=== PATIENT | female | born 1990 | race African-American/Black ===

== ENCOUNTER 2016-09-05 22:23 | Emergency (ER) | payer OTHER ==
[~2016-09-05] VITALS: Ht 165.1 cm; Wt 117.9 kg
[~2016-09-05 22:23] MED LIST: HYDR-2666 PO; METO10TA81 PO; METR500T4 PO; PNV1TABL25 PO
[2016-09-05 22:52] VITALS: BP 128/75
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
[2016-09-05] MEDS ORDERED: IBUPROFEN 600 MG TABLET. PO ONE (23:30)
[2016-09-05] MEDS ORDERED: HYDROCODONE/APAP 5/325MG TABLET. PO ONE (23:30)
--- NOTE | 2016-09-06 00:39 | RAD ---
INDICATION: Trauma COMPARISON: None TECHNIQUE: Axial CT images of the face with coronal and sagittal reformats processed. Axial CT images of head. One or more of the following individualized dose reduction techniques were utilized for this examination: 1. Automated exposure control; 2. Adjustment of the mA and/or kV according to patient size; 3. Use of iterative reconstruction technique. FINDINGS: Head: No midline shift. Basilar cistern patent. No gross hemorrhage or mass. Ventricles and sulci within normal limits in caliber for patients age. No gross skull fracture. Cystic attenuation in posterior fossa, could be prominent cisterna magna. Facial: No definite acute fracture or dislocation. No retro-orbital hematoma IMPRESSION: No gross intracranial hemorrhage or mass. No definite acute fracture or dislocation of the face Electronically signed by: Jude Prabhakar (Sep 06, 2016 00:38:57)
[2016-09-06] MEDS ORDERED: HYDR-971 PO (00:49)
== END 2016-09-06 00:55 | disposition home or self-care (01) ==
LOC: EEVIPCON 22:23 → ER 09-06 00:13
DX: S00.83XA Contusion of other part of head, initial encounter (principal); S00.03XA Contusion of scalp, initial encounter; S00.511A Abrasion of lip, initial encounter; F12.10 Cannabis abuse, uncomplicated; K21.9 Gastro-esophageal reflux disease without esophagitis; Y04.0XXA Assault by unarmed brawl or fight, initial encounter; Y93.89 Activity, other specified; Y92.038 Other place in apartment as the place of occurrence of the external cause; Y99.8 Other external cause status
CPT/HCPCS: 70450; 70486; 99284-25

== ENCOUNTER 2018-03-09 18:26 | Emergency (ER) | payer OTHER ==
[~2018-03-09] VITALS: Ht 167.6 cm; Wt 121.1 kg
[~2018-03-09 18:26] MED LIST changes: -HYDR-2666 PO; +HYDR-2758 PO; +HYDR-971 PO; -METR500T4 PO; +METR500T8 PO
[2018-03-09 19:14] LABS: BILIRUBIN,URINE NEGATIVE (NEG); CLARITY,URINE CLEAR; COLOR,URINE YELLOW; NITRITE,URINE NEGATIVE (NEG); PH,URINE 5.5; PROTEIN,URINE NEGATIVE (NEG-TRACE); UROBILINOGEN,URINE 0.2 mg/dL (0.2 mg/dL)
--- NOTE | 2018-03-09 19:22 | PHYS DOC ---
Past Medical History Past Medical History: GERD, Other Additional Past Medical Histor: htn in Past Surgical History: Additional Past Surgical Histo: C-sec x3. Alcohol Use: None Drug Use: None, Marijuana Adult General Chief Complaint Chief Complaint: ABDOMINAL PAIN HPI HPI Patient is a 27 year old female who presents with multiple complaints. Patient is complaining of vaginal bleeding/spotting intermittently for months. She states she has a Mirena. She states she used to have regular periods but for the last couple months she has noted spotting every 15 days. Patient is also complaining of generalized pelvic pain that has been going on for months. She is concerned the Mirena is the source of her pain. She is also complaining of a headache for couple days. Describes the headache as throbbing right rates it as mild and frontal. Denies any photophobia,nausea, vomiting. She is also complaining of a rash on her upper chest and shoulders that she noted yesterday , denies any new contacts. Review of Systems Review of Systems Constitutional: Denies fever or chills [] Eyes: Denies change in visual acuity, redness, or eye pain [] HENT: Denies nasal congestion or sore throat [] Respiratory: Denies cough or shortness of breath [] Cardiovascular: No additional information not addressed in HPI [] GI: Reports abdominal pain, vaginal bleeding/spotting, denies nausea, vomiting, bloody stools or diarrhea [] : Denies dysuria or hematuria [] Musculoskeletal: Denies back pain or joint pain [] Integument: Reports rash Neurologic: Reports headache, denies focal weakness or sensory changes [] All other systems were reviewed and found to be within normal limits, except as documented in this note. Current Medications Current Medications Current Medications Medications (Trade) Dose Ordered Sig/Artem Start Time Stop Time Status Last Admin Dose Admin Diphenhydramine HCl (Benadryl) 25 mg 1X ONCE 03/09/18 19:45 03/09/18 19:46 DC 03/09/18 19:32 25 MG Famotidine (Pepcid) 20 mg 1X ONCE 03/09/18 19:45 03/09/18 19:46 DC 03/09/18 19:32 20 MG Prednisone (Prednisone) 60 mg 1X ONCE 03/09/18 19:45 03/09/18 19:46 DC 03/09/18 19:32 60 MG Allergies Allergies Allergies Coded Allergies Type Severity Reaction Last Updated Verified No Known Drug Allergies 09/14/15 No Physical Exam Physical Exam Constitutional: Well developed, well nourished, no acute distress, non-toxic appearance. [] HENT: Normocephalic, atraumatic, bilateral external ears normal, oropharynx moist, no oral exudates, nose normal. [] Eyes: PERRLA, EOMI, conjunctiva normal, no discharge. [] Neck: Normal range of motion, no tenderness, supple, no stridor. [] Cardiovascular:Heart rate regular rhythm, no murmur [] Lungs & Thorax: Bilateral breath sounds clear to auscultation [] Abdomen: Bowel sounds normal, soft, no tenderness, no masses, no pulsatile masses. [] Pelvic exam External pelvic appears normal, cervix is not well visualized due to body habitus, no CMT, no adnexal tenderness, trace amount of white discharge in the vaginal vault Skin: Warm, dry, no erythema, small amount of nonerythematous rash on bilateral shoulders and upper chest. Back: No tenderness, no CVA tenderness. [] Extremities: No tenderness, no cyanosis, no clubbing, ROM intact, no edema. [] Neurologic: Alert and oriented X 3, normal motor function, normal sensory function, no focal deficits noted. Cranial nerves II through XII intact Psychologic: Affect normal, judgement normal, mood normal. [] Current Patient Data Vital Signs Vital Signs Date Time Temp Pulse Resp B/P (MAP) Pulse Ox O2 Delivery O2 Flow Rate FiO2 03/09/18 21:28 63 18 107/60 (76) 99 03/09/18 18:50 98.6 Room Air 98.6 Lab Values Laboratory Tests Test 03/09/18 18:53 03/09/18 19:00 03/09/18 19:23 Urine Collection Type Unknown Urine Color Yellow Urine Clarity Clear Urine pH 5.5 Urine Specific [place] 1.020 Urine Protein Negative mg/dL (NEG-TRACE) Urine Glucose (UA) Negative mg/dL (NEG) Urine Ketones (Stick) Negative mg/dL (NEG) Urine Blood Negative (NEG) Urine Nitrite Negative (NEG) Urine Bilirubin Negative (NEG) Urine Urobilinogen Dipstick 0.2 mg/dL (0.2 mg/dL) Urine Leukocyte Esterase Trace (NEG) Urine RBC 0 /HPF (0-2) Urine WBC 1-4 /HPF (0-4) Urine Squamous Epithelial Cells Few /LPF Urine Bacteria 0 /HPF (0-FEW) Urine Mucus Mod /LPF Urine Opiates Screen Neg (NEG) Urine Methadone Screen Neg (NEG) Urine Barbiturates Neg (NEG) Urine Phencyclidine Screen Neg (NEG) Urine Amphetamine/Methamphetamine Neg (NEG) Urine Benzodiazepines Screen Neg (NEG) Urine Cocaine Screen Neg (NEG) Urine Cannabinoids Screen Pos (NEG) Urine Ethyl Alcohol Neg (NEG) POC Urine HCG, Qualitative Hcg negative (Negative) White Blood Count 7.7 x10^3/uL (4.0-11.0) Red Blood Count 4.35 x10^6/uL (3.50-5.40) Hemoglobin 13.8 g/dL (12.0-15.5) Hematocrit 39.4 % (36.0-47.0) Mean Corpuscular Volume 91 fL (79-100) Mean Corpuscular Hemoglobin 32 pg (25-35) Mean Corpuscular Hemoglobin Concent 35 g/dL (31-37) Red Cell Distribution Width 12.8 % (11.5-14.5) Platelet Count 321 x10^3/uL (140-400) Neutrophils (%) (Auto) 63 % (31-73) Lymphocytes (%) (Auto) 27 % (24-48) Monocytes (%) (Auto) 8 % (0-9) Eosinophils (%) (Auto) 2 % (0-3) Basophils (%) (Auto) 1 % (0-3) Neutrophils # (Auto) 4.8 x10^3uL (1.8-7.7) Lymphocytes # (Auto) 2.1 x10^3/uL (1.0-4.8) Monocytes # (Auto) 0.6 x10^3/uL (0.0-1.1) Eosinophils # (Auto) 0.1 x10^3/uL (0.0-0.7) Basophils # (Auto) 0.1 x10^3/uL (0.0-0.2) Sodium Level 139 mmol/L (136-145) Potassium Level 3.6 mmol/L (3.5-5.1) Chloride Level 104 mmol/L (98-107) Carbon Dioxide Level 28 mmol/L (21-32) Anion Gap 7 (6-14) Blood Urea Nitrogen 9 mg/dL (7-20) Creatinine 0.7 mg/dL (0.6-1.0) Estimated GFR (Cockcroft-Gault) 123.4 BUN/Creatinine Ratio 13 (6-20) Glucose Level 87 mg/dL (70-99) Calcium Level 8.7 mg/dL (8.5-10.1) Total Bilirubin 0.9 mg/dL (0.2-1.0) Aspartate Amino Transferase (AST) 16 U/L (15-37) Alanine Aminotransferase (ALT) 24 U/L (14-59) Alkaline Phosphatase 57 U/L (46-116) Total Protein 7.5 g/dL (6.4-8.2) Albumin 3.5 g/dL (3.4-5.0) Albumin/Globulin Ratio 0.9 (1.0-1.7) L Lipase 134 U/L (73-393) Ethyl Alcohol Level < 10 mg/dL (0-10) Laboratory Tests 03/09/18 19:23 Laboratory Tests 03/09/18 19:23 Microbiology 03/09/18 Wet Prep - Final, Complete EKG EKG [] Radiology/Procedures Radiology/Procedures [] Course & Med Decision Making Course & Med Decision Making Pertinent Labs and Imaging studies reviewed. (See chart for details) This is a 27-year-old female patient presenting to the ED today with complaints of vaginal bleeding/spotting intermittently for months. She has a Mirena. She is also complaining of lower abdominal pain for months. She is also complaining of a rash since this morning as well as a headache. Negative urine hCG, CBC, CMP, lipase, urine analysis, white prep, negative for any acute findings. Pelvic ultrasound was noted for mass on the left ovary suspicious of a dermoid or teratoma. Spoke to patient about her results. Recommended she follows up with her GENERAL SCRAP WORKER. She also wanted her IUD removed. Requested she sees an GENERAL SCRAP WORKER for this. Discharged with instructions to take Tylenol or Motrin for pain. Recommended Benadryl for her rash. Provided return precautions and discharged in stable condition. Dragon Disclaimer Dragon Disclaimer This electronic medical record was generated, in whole or in part, using a voice recognition dictation system. Departure Departure Impression: Primary Impression: Pelvic pain Additional Impressions: Dermoid cyst of ovary Headache Contact dermatitis Dysfunctional uterine bleeding Disposition: 01 HOME, SELF-CARE Condition: STABLE Referrals: NO PCP (PCP) Follow-up with the GENERAL SCRAP WORKER as soon as you can CHICO RUIZ MD Patient Instructions: General Headache Without Cause, Ovarian Cyst, Pelvic Pain , Female, Rash, [id number] Additional Instructions: You were evaluated in the emergency room. We highly recommend you follow-up with your GENERAL SCRAP WORKER for IUD removal if you choose to have it removed, he also have a cyst/mass in the left ovary, follow-up with GENERAL SCRAP WORKER for this. Please take Benadryl as needed for the rash. Take Tylenol/Motrin as needed for pain. Problem Qualifiers Additional Impressions: Dermoid cyst of ovary Laterality: left Qualified Codes: D27.1 - Benign neoplasm of left ovary Headache Headache type: unspecified Headache chronicity pattern: acute headache Intractability: not intractable Qualified Codes: R51 - Headache Contact dermatitis Contact dermatitis type: unspecified Contact dermatitis trigger: unspecified trigger Qualified Codes: L25.9 - Unspecified contact dermatitis, unspecified cause CHRIS CHAWLA [employer]ICIANRY TEACHER Mar 09, 2018 19:22
[2018-03-09 19:23] LABS: BACTERIA,URINE 0 /HPF (0-FEW); RBC,URINE 0 /HPF (0-2); SQUAMOUS EPITHELIAL CELL,UR FEW /LPF
[2018-03-09 19:37] LABS: BASO # 0.1 x10^3/uL (0.0-0.2); BASO % 1 % (0-3); EOS # 0.1 x10^3/uL (0.0-0.7); EOS % 2 % (0-3); HEMATOCRIT 39.4 % (36.0-47.0); HEMOGLOBIN 13.8 g/dL (12.0-15.5); LYMPH # 2.1 x10^3/uL (1.0-4.8); LYMPH % 27 % (24-48); MEAN CORPUSCULAR HEMOGLOBIN 32 pg (25-35); MEAN CORPUSCULAR HGB CONC 35 g/dL (31-37); MEAN CORPUSCULAR VOLUME 91 fL (79-100); MONO # 0.6 x10^3/uL (0.0-1.1); MONO % 8 % (0-9); NEUT # 4.8 x10^3uL (1.8-7.7); NEUT % 63 % (31-73); PLATELET COUNT 321 x10^3/uL (140-400); RED BLOOD COUNT 4.35 x10^6/uL (3.50-5.40); RED CELL DISTRIBUTION WIDTH 12.8 % (11.5-14.5); WHITE BLOOD COUNT 7.7 x10^3/uL (4.0-11.0)
[2018-03-09 19:45] LABS: CALCIUM 8.7 mg/dL (8.5-10.1); CREATININE 0.7 mg/dL (0.6-1.0); GFR 123.4; POTASSIUM 3.6 mmol/L (3.5-5.1)
[2018-03-09] MEDS ORDERED: FAMOTIDINE 20 MG TABLET. PO ONE (19:45)
[2018-03-09] MEDS ORDERED: predniSONE 20 MG TABLET PO ONE (19:45)
[2018-03-09] MEDS ORDERED: diphenhydrAMINE HCL 25 MG CAPSULE PO ONE (19:45)
[2018-03-09 19:49] LABS: BARBITURATES NEG (NEG); BENZODIAZEPINES NEG (NEG); CANNABINOIDS POS (NEG); COCAINE NEG (NEG); METHADONE NEG (NEG); OPIATES NEG (NEG); PHENCYCLIDINE NEG (NEG)
[2018-03-09 19:50] LABS: ALBUMIN 3.5 g/dL (3.4-5.0); ALBUMIN/GLOBULIN RATIO 0.9 (1.0-1.7); TOTAL BILIRUBIN 0.9 mg/dL (0.2-1.0); TOTAL PROTEIN 7.5 g/dL (6.4-8.2)
[2018-03-09 19:51] LABS: AMPHETAMINE/METHAMPHETAMINE NEG (NEG)
--- NOTE | 2018-03-09 20:54 | RAD ---
Indication:Pain, irregular cycles. IUD x2 years TECHNIQUE: Grayscale, color Doppler and spectral waveform images of the pelvis obtained. COMPARISON: None FINDINGS: Small amount of free fluid is seen in the cul-de-sac. IUD is seen approximately 2.3 cm from the level of external cervical os. The uterus measures 10.5 x 7.0 x 4.3 cm. Endometrial stripe measures 6 m in thickness and is within normal limits. Left ovary demonstrates evidence of blood flow and measures 4.5 x 3.4 x 2.5 cm with a 1.7 x 1.5 x 1.7 cm simple cyst or dominant follicle. The right ovary demonstrates evidence of blood flow and measures 3.4 x 2.5 x 1.8 cm and is within normal limits. There is a hyperechoic masslike lesion in the left ovary with some posterior shadowing. IMPRESSION: 1. Bilateral ovaries demonstrate evidence of blood flow. 2. Questionable masslike lesion in the left ovary with some posterior shadowing. Findings may be secondary to a dermoid/teratoma. Nonemergent MRI pelvis with IV contrast recommended. Electronically signed by: Ramírez Granado DO (03/09/2018 8:51 PM) [facility]
[2018-03-09 21:28] VITALS: BP 107/60
[2018-03-13 15:26] LABS: GC PROBE Negative (Negative)
== END 2018-03-09 21:29 | disposition home or self-care (01) ==
LOC: ER 18:26
DX: D27.1 Benign neoplasm of left ovary (principal); N93.8 Other specified abnormal uterine and vaginal bleeding; L25.9 Unspecified contact dermatitis, unspecified cause; R51 Headache; K21.9 Gastro-esophageal reflux disease without esophagitis; Z98.890 Other specified postprocedural states
CPT/HCPCS: 36415; 76830; 76856; 80053; 80307; 81001; 81025; 83690; 85025; 87086; 87491; 87591; 99285; G0480; J7512; Q0111; Q0163; G0479

== ENCOUNTER 2018-07-31 22:53 | Emergency (ER) | payer SELFPAY ==
[~2018-07-31 22:53] MED LIST changes: -HYDR-2758 PO; +HYDR-2761 PO; +HYDR-3164 PO; -HYDR-971 PO; +METR-84 PO; -METR500T8 PO
[2018-08-01 04:12] LABS: ALBUMIN 3.4 g/dL (3.4-5.0); CALCIUM 8.8 mg/dL (8.5-10.1); CREATININE 0.8 mg/dL (0.6-1.0); DIRECT BILIRUBIN 0.1 mg/dL (0.0-0.2); GFR 105.8; POTASSIUM 3.5 mmol/L (3.5-5.1); TOTAL BILIRUBIN 0.3 mg/dL (0.2-1.0); TOTAL PROTEIN 7.4 g/dL (6.4-8.2); WHITE BLOOD COUNT 12.9 x10^3/uL (4.0-11.0)
[2018-08-01 04:13] LABS: BASO # 0.1 x10^3/uL (0.0-0.2); BASO % 1 % (0-3); EOS # 0.1 x10^3/uL (0.0-0.7); EOS % 1 % (0-3); HEMATOCRIT 38.6 % (36.0-47.0); HEMOGLOBIN 13.6 g/dL (12.0-15.5); LYMPH # 2.8 x10^3/uL (1.0-4.8); LYMPH % 22 % (24-48); MEAN CORPUSCULAR HEMOGLOBIN 32 pg (25-35); MEAN CORPUSCULAR HGB CONC 35 g/dL (31-37); MEAN CORPUSCULAR VOLUME 91 fL (79-100); MONO # 0.6 x10^3/uL (0.0-1.1); MONO % 5 % (0-9); NEUT # 9.3 x10^3uL (1.8-7.7); NEUT % 73 % (31-73); PLATELET COUNT 305 x10^3/uL (140-400); RED BLOOD COUNT 4.23 x10^6/uL (3.50-5.40)
[2018-08-01 04:14] LABS: AMORPHOUS SEDIMENT,UR PRESENT /HPF; BACTERIA,URINE 0 /HPF (0-FEW); BILIRUBIN,URINE NEGATIVE (NEG); CLARITY,URINE CLOUDY; COLOR,URINE YELLOW; NITRITE,URINE NEGATIVE (NEG); PH,URINE 7.5; PROTEIN,URINE NEGATIVE (NEG-TRACE); RBC,URINE OCC /HPF (0-2); SQUAMOUS EPITHELIAL CELL,UR OCC /LPF; U PREG PATIENT NEGATIVE (NEG); WBC,URINE OCC /HPF (0-4)
--- NOTE | 2018-08-01 09:13 | RAD ---
Pelvic ultrasound to include transabdominal and transvaginal imaging 07/31/2018 CLINICAL HISTORY: Pelvic pain for 3 hours. TECHNIQUE: Using the distended urinary bladder as a sonographic window, a real-time ultrasound examination of the pelvis was performed. Additionally in an attempt to better evaluate the uterus and adnexa, a transvaginal ultrasound study was performed. Multiple images were obtained. FINDINGS: Comparison study is dated 03/09/2018. The uterus is within normal limits in size. It measures 9.6 x 6.2 x 4.7 cm in longitudinal, transverse, and AP dimensions. The endometrial echo complex measures 5 mm in thickness which is within normal limits. An IUD is seen within the inferior aspect of the endometrial canal extending near the cervical canal. No focal abnormality of the uterus is seen. Both ovaries are within normal limits in size. The right ovary measures 2.7 x 2.4 x 1.9 cm in size. The left ovary measures 4.0 x 3.0 x 2.1 cm in size. A 2.4 cm oval-shaped heterogeneous structure with shadowing is seen which may represent a dermoid. This is unchanged. A small amount of free fluid is seen within the pelvis. IMPRESSION: 1. IUD is in a low position within the endometrial canal as outlined above. 2. 2.4 cm probable left ovarian dermoid, unchanged. 3. Small amount of free fluid is seen within the pelvis. 2. Electronically signed by: Terry Wright MD (08/01/2018 9:09 AM) [id number]
== END 2018-08-01 01:38 | disposition home or self-care (01) ==
LOC: ER 22:53
DX: R19.09 Other intra-abdominal and pelvic swelling, mass and lump (principal); Z98.890 Other specified postprocedural states
CPT/HCPCS: 36415; 76830; 76856; 80048; 80076; 81001; 81025; 83690; 85025; 99284-25

== ENCOUNTER 2019-02-27 09:57 | Emergency (ER) | payer SELFPAY ==
[~2019-02-27] VITALS: Ht 167.6 cm; Wt 129.3 kg
[~2019-02-27 09:57] MED LIST changes: +METR-34 PO; -METR-84 PO
--- NOTE | 2019-02-27 10:28 | PHYS DOC ---
Past Medical History Past Medical History: Anxiety, Depression, GERD, Other Additional Past Medical Histor: htn in Past Surgical History: Additional Past Surgical Histo: C-sec x3. Alcohol Use: None Drug Use: None Adult General Chief Complaint Chief Complaint: ABDOMINAL PAIN HPI HPI Patient is a 28 year old female presents to the ED complaining of diffuse lower abdominal pain �3 days ago. Describes the pain as cramping. Rates the pain as 6 out of 10. Associated symptoms include nausea and vomiting. Nonbilious nonbloody. Denies fever, vaginal discharge/bleeding, dysuria, hematuria, flank pain, headache, dizziness, chest pain or shortness of breath. Review of Systems Review of Systems Constitutional: Denies fever or chills [] Eyes: Denies change in visual acuity, redness, or eye pain [] HENT: Denies nasal congestion or sore throat [] Respiratory: Denies cough or shortness of breath [] Cardiovascular: No additional information not addressed in HPI [] GI: Complains of abdominal pain, nausea, vomiting. Denies bloody stools or diarrhea [] : Denies dysuria or hematuria [] Musculoskeletal: Denies back pain or joint pain [] Integument: Denies rash or skin lesions [] Neurologic: Denies headache, focal weakness or sensory changes [] All other systems were reviewed and found to be within normal limits, except as documented in this note. Current Medications Current Medications Current Medications Medications (Trade) Dose Ordered Sig/Artem Start Time Stop Time Status Last Admin Dose Admin Ketorolac Tromethamine (Toradol 30mg Vial) 30 mg 1X ONCE 02/27/19 10:30 02/27/19 10:31 DC 02/27/19 11:19 30 MG Allergies Allergies Allergies Coded Allergies Type Severity Reaction Last Updated Verified No Known Drug Allergies 09/14/15 No Physical Exam Physical Exam Constitutional: Well developed, well nourished, no acute distress, non-toxic appearance. [] HENT: Normocephalic, atraumatic Eyes: PERRLA, EOMI, conjunctiva normal, no discharge. [] Neck: Normal range of motion, no tenderness, supple, no stridor. [] Cardiovascular:Heart rate regular rhythm, no murmur [] Lungs & Thorax: Bilateral breath sounds clear to auscultation [] Abdomen: Bowel sounds normal, soft, mild diffuse abdominal tenderness, no masses, no pulsatile masses. [] : Deferred Skin: Warm, dry, no erythema, no rash. [] Back: No tenderness, no CVA tenderness. [] Extremities: No tenderness, no cyanosis, no clubbing, ROM intact, no edema. [] Neurologic: Alert and oriented X 3, normal motor function, normal sensory fu nction, no focal deficits noted. [] Psychologic: Affect normal, judgement normal, mood normal. [] Current Patient Data Vital Signs Vital Signs Date Time Temp Pulse Resp B/P (MAP) Pulse Ox O2 Delivery O2 Flow Rate FiO2 02/27/19 10:10 98.7 87 16 136/75 (95) 97 Room Air 98.7 Lab Values Laboratory Tests Test 02/27/19 10:11 02/27/19 10:14 02/27/19 11:15 Urine Collection Type Unknown Urine Color Yellow Urine Clarity Clear Urine pH 7.0 Urine Specific [place] 1.025 Urine Protein Negative mg/dL (NEG-TRACE) Urine Glucose (UA) Negative mg/dL (NEG) Urine Ketones (Stick) Negative mg/dL (NEG) Urine Blood Negative (NEG) Urine Nitrite Negative (NEG) Urine Bilirubin Negative (NEG) Urine Urobilinogen Dipstick 1.0 mg/dL (0.2 mg/dL) Urine Leukocyte Esterase Small (NEG) Urine RBC Occ /HPF (0-2) Urine WBC 5-10 /HPF (0-4) Urine Squamous Epithelial Cells Many /LPF Urine Bacteria Mod /HPF (0-FEW) Urine Mucus Mod /LPF POC Urine HCG, Qualitative Hcg negative (Negative) White Blood Count 7.1 x10^3/uL (4.0-11.0) Red Blood Count 4.20 x10^6/uL (3.50-5.40) Hemoglobin 13.1 g/dL (12.0-15.5) Hematocrit 38.1 % (36.0-47.0) Mean Corpuscular Volume 91 fL (79-100) Mean Corpuscular Hemoglobin 31 pg (25-35) Mean Corpuscular Hemoglobin Concent 35 g/dL (31-37) Red Cell Distribution Width 13.0 % (11.5-14.5) Platelet Count 310 x10^3/uL (140-400) Neutrophils (%) (Auto) 60 % (31-73) Lymphocytes (%) (Auto) 31 % (24-48) Monocytes (%) (Auto) 7 % (0-9) Eosinophils (%) (Auto) 2 % (0-3) Basophils (%) (Auto) 1 % (0-3) Neutrophils # (Auto) 4.3 x10^3/uL (1.8-7.7) Lymphocytes # (Auto) 2.2 x10^3/uL (1.0-4.8) Monocytes # (Auto) 0.5 x10^3/uL (0.0-1.1) Eosinophils # (Auto) 0.1 x10^3/uL (0.0-0.7) Basophils # (Auto) 0.1 x10^3/uL (0.0-0.2) Sodium Level 141 mmol/L (136-145) Potassium Level 3.5 mmol/L (3.5-5.1) Chloride Level 105 mmol/L (98-107) Carbon Dioxide Level 29 mmol/L (21-32) Anion Gap 7 (6-14) Blood Urea Nitrogen 9 mg/dL (7-20) Creatinine 0.7 mg/dL (0.6-1.0) Estimated GFR (Cockcroft-Gault) 122.4 BUN/Creatinine Ratio 13 (6-20) Glucose Level 92 mg/dL (70-99) Calcium Level 8.7 mg/dL (8.5-10.1) Total Bilirubin 0.5 mg/dL (0.2-1.0) Aspartate Amino Transferase (AST) 19 U/L (15-37) Alanine Aminotransferase (ALT) 33 U/L (14-59) Alkaline Phosphatase 54 U/L (46-116) Total Protein 7.5 g/dL (6.4-8.2) Albumin 3.6 g/dL (3.4-5.0) Albumin/Globulin Ratio 0.9 (1.0-1.7) L Lipase 118 U/L (73-393) Laboratory Tests 02/27/19 11:15 Laboratory Tests 02/27/19 11:15 EKG EKG [] Radiology/Procedures Radiology/Procedures CT abdomen/pelvis without contrast 02/27/2019 10:21 AM INDICATION: Diffuse lower abdominal pain COMPARISON: None available TECHNIQUE: Multiple axial CT images of the abdomen and pelvis were obtained without intravenous contrast. Coronal and sagittal reformats are provided. FINDINGS: Lung bases are clear. Heart size is within normal limits. Evaluation of solid abdominal viscera is limited by lack of intravenous contrast. No suspicious hepatic lesions are identified. Spleen, bilateral adrenal glands, pancreas and gallbladder are normal in appearance. The abdominal aorta is normal in course and caliber. There are no pathologically enlarged lymph nodes in the abdomen and pelvis. There is no abdominal free fluid. There is no free intraperitoneal air. Small and large bowel are normal in caliber. There is no evidence for bowel obstruction. There are no pericolonic inflammatory changes. A normal, nondilated appendix is visualized without adjacent inflammatory changes. The kidneys are relatively symmetric in appearance. There is no suspicious renal mass within the limitations of a noncontrast examination. There is no hydronephrosis. There are no calculi within the kidneys, ureters or urinary bladder. Urinary bladder is within normal limits given degree of distention. Uterus is normal in appearance. There is a fat and calcium containing left adnexal mass measuring at least 2.1 x 1.8 cm. For the changes are identified in the right adnexa. No significant pelvic free fluid. No suspicious osseous abnormality is identified. IMPRESSION: 1. Fat and calcium containing left adnexal mass measuring at least 2.1 x 1.8 cm, most compatible with ovarian teratoma. Perfusion to the ovaries is not assessed by CT. 2. Appendix is normal in appearance. 3. No evidence for obstructive uropathy.[] PROCEDURE: PELVIS COMPLETE Examination: Ultrasound pelvis HISTORY: History of left-sided pelvic pain COMPARISON: 07/31/2018. FINDINGS: The uterus measures 9.9 x 6.3 x 5.2 cm. The endometrium measures 5.2 mm in thickness. The right ovary measures 3.8 x 2.5 x 2.6 cm. The left ovary measures 3.3 x 1.7 x 2.4 cm. Blood flow identified in the right and left ovaries. There is a cystic structure identified in the right ovary measuring 2.1 cm. IMPRESSION: 2.1 cm cystic structure identified in the right ovary probably cyst or follicle. Course & Med Decision Making Course & Med Decision Making Pertinent Labs and Imaging studies reviewed. (See chart for details) []Discussed lab and imaging findings with patient. Patient's pain improved in the ED. On reexamination, abdomen is soft nontender nondistended. No peritoneal signs. Tolerating by mouth. Discussed symptomatic treatment follow-up with [facility] this week. Provided contact information/education. Discussed reasons to return to the ED. Patient understands and agrees with plan. Dragon Disclaimer Dragon Disclaimer This electronic medical record was generated, in whole or in part, using a voice recognition dictation system. Departure Departure Impression: Primary Impression: Urinary tract infection Additional Impression: Dermoid cyst of ovary Disposition: HOME, SELF-CARE Condition: IMPROVED Referrals: NO PCP (PCP) LENORA MCKEON Jr, MD Patient Instructions: Ovarian Cyst, Urinary Tract Infection Scripts Nitrofurantoin Monohyd/M-Cryst (MACROBID 100 MG CAPSULE) 100 Mg Capsule 1 CAP PO BID, #14 CAP Prov: EDELMIRA CEDEÑO 02/27/19 Naproxen (NAPROSYN) 500 Mg Tablet 1 TAB PO BID, #14 TAB 0 Refills Prov: EDELMIRA CEDEÑO 02/27/19 Problem Qualifiers EDELMIRA CEDEÑO Feb 27, 2019 10:28
[2019-02-27] MEDS ORDERED: KETOROLAC 30 MG/ML VIAL. IV ONE (10:30)
[2019-02-27 10:41] LABS: BILIRUBIN,URINE NEGATIVE (NEG); CLARITY,URINE CLEAR; COLOR,URINE YELLOW; NITRITE,URINE NEGATIVE (NEG); PROTEIN,URINE NEGATIVE (NEG-TRACE)
[2019-02-27 10:58] LABS: BACTERIA,URINE MOD /HPF (0-FEW); RBC,URINE OCC /HPF (0-2); SQUAMOUS EPITHELIAL CELL,UR MANY /LPF
--- NOTE | 2019-02-27 11:08 | RAD ---
PQRS Compliance Statement: One or more of the following individualized dose reduction techniques were utilized for this examination: 1. Automated exposure control 2. Adjustment of the mA and/or kV according to patient size 3. Use of iterative reconstruction technique CT abdomen/pelvis without contrast 02/27/2019 10:21 AM INDICATION: Diffuse lower abdominal pain COMPARISON: None available TECHNIQUE: Multiple axial CT images of the abdomen and pelvis were obtained without intravenous contrast. Coronal and sagittal reformats are provided. FINDINGS: Lung bases are clear. Heart size is within normal limits. Evaluation of solid abdominal viscera is limited by lack of intravenous contrast. No suspicious hepatic lesions are identified. Spleen, bilateral adrenal glands, pancreas and gallbladder are normal in appearance. The abdominal aorta is normal in course and caliber. There are no pathologically enlarged lymph nodes in the abdomen and pelvis. There is no abdominal free fluid. There is no free intraperitoneal air. Small and large bowel are normal in caliber. There is no evidence for bowel obstruction. There are no pericolonic inflammatory changes. A normal, nondilated appendix is visualized without adjacent inflammatory changes. The kidneys are relatively symmetric in appearance. There is no suspicious renal mass within the limitations of a noncontrast examination. There is no hydronephrosis. There are no calculi within the kidneys, ureters or urinary bladder. Urinary bladder is within normal limits given degree of distention. Uterus is normal in appearance. There is a fat and calcium containing left adnexal mass measuring at least 2.1 x 1.8 cm. For the changes are identified in the right adnexa. No significant pelvic free fluid. No suspicious osseous abnormality is identified. IMPRESSION: 1. Fat and calcium containing left adnexal mass measuring at least 2.1 x 1.8 cm, most compatible with ovarian teratoma. Perfusion to the ovaries is not assessed by CT. 2. Appendix is normal in appearance. 3. No evidence for obstructive uropathy. Electronically signed by: Bharti Cardona MD (02/27/2019 11:05 AM) [id number]
[2019-02-27 11:25] LABS: BASO # 0.1 x10^3/uL (0.0-0.2); BASO % 1 % (0-3); EOS # 0.1 x10^3/uL (0.0-0.7); EOS % 2 % (0-3); HEMATOCRIT 38.1 % (36.0-47.0); HEMOGLOBIN 13.1 g/dL (12.0-15.5); LYMPH # 2.2 x10^3/uL (1.0-4.8); LYMPH % 31 % (24-48); MEAN CORPUSCULAR HEMOGLOBIN 31 pg (25-35); MEAN CORPUSCULAR HGB CONC 35 g/dL (31-37); MEAN CORPUSCULAR VOLUME 91 fL (79-100); MONO # 0.5 x10^3/uL (0.0-1.1); MONO % 7 % (0-9); NEUT # 4.3 x10^3/uL (1.8-7.7); NEUT % 60 % (31-73); PLATELET COUNT 310 x10^3/uL (140-400); WHITE BLOOD COUNT 7.1 x10^3/uL (4.0-11.0)
[2019-02-27 11:35] LABS: CALCIUM 8.7 mg/dL (8.5-10.1); CREATININE 0.7 mg/dL (0.6-1.0); GFR 122.4; POTASSIUM 3.5 mmol/L (3.5-5.1)
[2019-02-27 11:41] LABS: ALBUMIN 3.6 g/dL (3.4-5.0); ALBUMIN/GLOBULIN RATIO 0.9 (1.0-1.7); TOTAL BILIRUBIN 0.5 mg/dL (0.2-1.0); TOTAL PROTEIN 7.5 g/dL (6.4-8.2)
--- NOTE | 2019-02-27 12:44 | RAD ---
Examination: Ultrasound pelvis HISTORY: History of left-sided pelvic pain COMPARISON: 07/31/2018. FINDINGS: The uterus measures 9.9 x 6.3 x 5.2 cm. The endometrium measures 5.2 mm in thickness. The right ovary measures 3.8 x 2.5 x 2.6 cm. The left ovary measures 3.3 x 1.7 x 2.4 cm. Blood flow identified in the right and left ovaries. There is a cystic structure identified in the right ovary measuring 2.1 cm. IMPRESSION: 2.1 cm cystic structure identified in the right ovary probably cyst or follicle. Electronically signed by: Adryan Correa MD (02/27/2019 12:42 PM) [id number]
[2019-02-27 12:46] VITALS: BP 123/73
[2019-02-27] MEDS ORDERED: NITR100C62 PO (12:53)
[2019-02-27] MEDS ORDERED: NAPR-683 PO (12:53)
== END 2019-02-27 13:00 | disposition home or self-care (01) ==
LOC: ER 09:57
DX: N39.0 Urinary tract infection, site not specified (principal); D27.1 Benign neoplasm of left ovary; R11.2 Nausea with vomiting, unspecified; F41.9 Anxiety disorder, unspecified; F32.9 Major depressive disorder, single episode, unspecified; K21.9 Gastro-esophageal reflux disease without esophagitis; Z98.890 Other specified postprocedural states
CPT/HCPCS: 36415; 74176; 76856; 80053; 81001; 81025; 83690; 85025; 96374; 99285; J1885

== ENCOUNTER 2020-10-31 13:30 | Emergency (ER) | payer SELFPAY ==
[~2020-10-31] VITALS: Ht 167.6 cm; Wt 118.0 kg
[~2020-10-31 13:30] MED LIST changes: +NAPR-683 PO; +NITR100C62 PO
[2020-10-31 14:16] LABS: BILIRUBIN,URINE NEGATIVE (NEG); CLARITY,URINE CLEAR; COLOR,URINE YELLOW; NITRITE,URINE NEGATIVE (NEG); PH,URINE 7.5 (<5.0-8.0); PROTEIN,URINE NEGATIVE (NEG-TRACE)
[2020-10-31 14:24] LABS: BACTERIA,URINE FEW /HPF (0-FEW); RBC,URINE 0 /HPF (0-2); WBC,URINE 0 /HPF (0-4)
[2020-10-31] MEDS ORDERED: fentaNYL PF VIAL 100 MCG/2 ML VIAL IVP ONE (14:30)
[2020-10-31] MEDS ORDERED: METOCLOPRAMIDE HCL 10 MG/2 ML VIAL. IVP ONE (14:30)
[2020-10-31 14:31] LABS: BASO # 0.1 x10^3/uL (0.0-0.2); BASO % 1 % (0-3); EOS # 0.1 x10^3/uL (0.0-0.7); EOS % 1 % (0-3); HEMATOCRIT 37.8 % (36.0-47.0); LYMPH # 2.2 x10^3/uL (1.0-4.8); LYMPH % 23 % (24-48); MEAN CORPUSCULAR HEMOGLOBIN 31 pg (25-35); MEAN CORPUSCULAR HGB CONC 34 g/dL (31-37); MEAN CORPUSCULAR VOLUME 89 fL (79-100); MONO # 0.7 x10^3/uL (0.0-1.1); MONO % 7 % (0-9); NEUT # 6.3 x10^3/uL (1.8-7.7); NEUT % 68 % (31-73); PLATELET COUNT 334 x10^3/uL (140-400); RED BLOOD COUNT 4.24 x10^6/uL (3.50-5.40); RED CELL DISTRIBUTION WIDTH 13.1 % (11.5-14.5); WHITE BLOOD COUNT 9.2 x10^3/uL (4.0-11.0)
[2020-10-31 14:40] LABS: CALCIUM 8.6 mg/dL (8.5-10.1); CREATININE 0.6 mg/dL (0.6-1.0); GFR 145.1; POTASSIUM 3.7 mmol/L (3.5-5.1)
--- NOTE | 2020-10-31 14:40 | PHYS DOC ---
Past Medical History Past Medical History: Anxiety, Depression, GERD, Other Additional Past Medical Histor: htn in Past Surgical History: Additional Past Surgical Histo: C-sec x3. Smoking Status: Never Smoker Alcohol Use: None Drug Use: None General Adult EDM: Chief Complaint: ABDOMINAL PAIN IN HPI: HPI: This is a pleasant 26-year-old female who is a -0-0-3 who belives she is 9 wks preg by lmp who presents the emergency department today with abdominal pain in the right upper quadrant. She describes it as a sharp shooting pain that is nonradiating. Its worse with eating. She has had this pain intermittently bef ore over the years however over the past few days it has been worse. She also has a mild cramping sensation in her pelvis had some spotting about 4 days ago but has not had any vaginal bleeding since then. She is primarily here because of the pain in her upper belly. Blood type is A positive reported by blood bank to me. Review of systems negative for chest pain shortness of breath vomiting fevers chills. All other review of systems negative. ED course: 29-year-old female presenting to the emergency department today with abdominal pain in . Ultrasound of the gallbladder shows cholelithiasis without any evidence of cholecystitis. Ultrasound of the uterus and ovaries shows intrauterine . Otherwise blood work unremarkable. Urinalysis shows a few bacteria so we will give oral Keflex to cover for bacteriuria. On repeat abdominal exam the abdomen is soft nontender and without rebound tenderness or guarding. Negative McBurney's point. The patient has been exa mined and was not found to have an emergency medical condition. The patient was then discharged home in stable condition to follow up with their primary care physician over the next 1-2 days. They were to return if their symptoms worsened or if they were concerned for any reason. They were also instructed to return to the emergency department if they were unable to get the recommended and appropriate follow-up. [id number] discharge instructions and return precautions were given. Patient's questions were answered to their satisfaction. Patient is comfortable with plan. We will have the patient follow-up tomorrow or the day after either with the patient's OB in clinic or in urgent care for repeat abdominal exam. Heart Score: C/O Chest Pain: No Risk Factors: Risk Factors: DM, Current or recent (<one month) smoker, HTN, HLP, family history of CAD, obesity. Risk Scores: Score 0 - 3: 2.5% MACE over next 6 weeks - Discharge Home Score 4 - 6: 20.3% MACE over next 6 weeks - Admit for Clinical Observation Score 7 - 10: 72.7% MACE over next 6 weeks - Early Invasive Strategies Current Medications: Current Medications Medications (Trade) Dose Ordered Sig/Artem Start Time Stop Time Status Last Admin Dose Admin Fentanyl Citrate (Fentanyl 2ml Vial) 50 mcg 1X ONCE 10/31/20 14:30 10/31/20 14:31 UNV Metoclopramide HCl (Reglan Vial) 10 mg 1X ONCE 10/31/20 14:30 10/31/20 14:31 UNV Allergies: Allergies: Allergies Coded Allergies Type Severity Reaction Last Updated Verified No Known Drug Allergies 09/14/15 No Physical Exam: PE: Constitutional: Well developed, well nourished, no acute distress, non-toxic appearance. [] HENT: Normocephalic, atraumatic, bilateral external ears normal, oropharynx moist, no oral exudates, nose normal. [] Eyes: PERRLA, EOMI, conjunctiva normal, no discharge. [] Neck: Normal range of motion, no tenderness, supple, no stridor. [] Cardiovascular:Heart rate regular rhythm, no murmur [] Lungs & Thorax: Bilateral breath sounds clear to auscultation [] Abdomen: Bowel sounds normal, soft, mildly tender to palpation in the right upper quadrant. No rebound tenderness or guarding. Negative McBurney's point., no masses, no pulsatile masses. Skin: Warm, dry, no erythema, no rash. [] Back: No tenderness, no CVA tenderness. [] Extremities: No tenderness, no cyanosis, no clubbing, ROM intact, no edema. [] Neurologic: Alert and oriented X 3, normal motor function, normal sensory function, no focal deficits noted. [] Psychologic: Affect normal, judgement normal, mood normal. [] Current Patient Data: Labs: Laboratory Tests Test 10/31/20 14:00 10/31/20 14:06 10/31/20 14:15 Urine Collection Type Void Urine Color Yellow Urine Clarity Clear Urine pH 7.5 (<5.0-8.0) Urine Specific [place] 1.020 (1.000-1.030) Urine Protein Negative mg/dL (NEG-TRACE) Urine Glucose (UA) Negative mg/dL (NEG) Urine Ketones (Stick) Negative mg/dL (NEG) Urine Blood Negative (NEG) Urine Nitrite Negative (NEG) Urine Bilirubin Negative (NEG) Urine Urobilinogen Dipstick 1.0 mg/dL (0.2 mg/dL) Urine Leukocyte Esterase Negative (NEG) Urine RBC 0 /HPF (0-2) Urine WBC 0 /HPF (0-4) Urine Squamous Epithelial Cells Many /LPF Urine Bacteria Few /HPF (0-FEW) POC Urine HCG, Qualitative Hcg positive (Negative) White Blood Count 9.2 x10^3/uL (4.0-11.0) Red Blood Count 4.24 x10^6/uL (3.50-5.40) Hemoglobin 13.0 g/dL (12.0-15.5) Hematocrit 37.8 % (36.0-47.0) Mean Corpuscular Volume 89 fL (79-100) Mean Corpuscular Hemoglobin 31 pg (25-35) Mean Corpuscular Hemoglobin Concent 34 g/dL (31-37) Red Cell Distribution Width 13.1 % (11.5-14.5) Platelet Count 334 x10^3/uL (140-400) Neutrophils (%) (Auto) 68 % (31-73) Lymphocytes (%) (Auto) 23 % (24-48) L Monocytes (%) (Auto) 7 % (0-9) Eosinophils (%) (Auto) 1 % (0-3) Basophils (%) (Auto) 1 % (0-3) Neutrophils # (Auto) 6.3 x10^3/uL (1.8-7.7) Lymphocytes # (Auto) 2.2 x10^3/uL (1.0-4.8) Monocytes # (Auto) 0.7 x10^3/uL (0.0-1.1) Eosinophils # (Auto) 0.1 x10^3/uL (0.0-0.7) Basophils # (Auto) 0.1 x10^3/uL (0.0-0.2) Laboratory Tests 10/31/20 14:15 EKG: EKG: [] Radiology/Procedures: Radiology/Procedures: [] Course & Med Decision Making: Course & Med Decision Making Pertinent Labs and Imaging studies reviewed. (See chart for details) [] Osei Disclaimer: Osei Disclaimer: This electronic medical record was generated, in whole or in part, using a voice recognition dictation system. Departure Departure Impression: Primary Impression: Epigastric pain Additional Impression: Disposition: HOME / SELF CARE / HOMELESS Condition: STABLE Referrals: NO PCP (PCP) Patient Instructions: Abdominal Pain During Additional Instructions: EMERGENCY DEPARTMENT GENERAL DISCHARGE INSTRUCTIONS Follow-up with your primary physician or urgent care in 1 to 2 days for ree xamination. Return to the emergency department if you have any new or concerning findings. Thank you for coming to [facility] Emergency Department (ED) today and trusting us with you care. We trust that you had a positive experience in our Emergency Department. If you wish to speak to the department management, you may call the Director at [phone]. Follow up is important in emergency/acute care visits. This condition should be evaluated by your primary care physician and any necessary consulting services for continued management within a few days (1-2) after discharge. Return to the emergency department if you have any new or concerning symptoms including but not limited to fever, chills, nausea, vomiting, intractable pain, any new rashes, chest pain, shortness of breath, uncontrolled bleeding, difficulty breathing, and/or vision loss. 1. Do you have a private Doctor? If you do not have a private doctor, please ask for a resource list of physicians or clinics that may be able to assist you with follow up care. 2. If a lab test or culture has been done and does not come back immediately, your results will be reviewed and you will be notified if you need a change in treatment. 3. Your care today has been supervised by a physician who is specially trained in emergency care. Many problems require more than one evaluation for a complete diagnosis and treatment. We recommend that you schedule your follow up appointment as recommended to ensure complete treatment of you illness or injury. If you are unable to obtain follow up care and continue to have a problem, or if your condition worsens, we recommend that you return to the ED. 4. We are not able to safely determine your condition over the phone nor are we able to give sound medical advice over the phone. For these safety reasons, if you call for medical advice we will ask you to come to the ED for further evaluation. IF YOUR SYMPTOMS WORSEN OR NEW SYMPTOMS DEVELOP, OR YOU HAVE CONCERNS ABOUT YOUR CONDITION; OR IF YOUR CONDITION WORSENS WHILE YOU ARE WAITING FOR YOUR FOLLOW U P APPOINTMENT; EITHER CONTACT YOUR PRIMARY CARE DOCTOR, THE PHYSICIAN WHOSE NAME AND NUMBER YOU WERE GIVEN, OR RETURN TO THE ED IMMEDIATELY. SHANDA GRIFFIN MD Oct 31, 2020 14:40
[2020-10-31 14:46] LABS: ALBUMIN 3.4 g/dL (3.4-5.0); DIRECT BILIRUBIN 0.1 mg/dL (0.0-0.2); TOTAL BILIRUBIN 0.4 mg/dL (0.2-1.0); TOTAL PROTEIN 7.1 g/dL (6.4-8.2)
--- NOTE | 2020-10-31 14:47 | RAD ---
EXAM: Abdomen sonogram; obstetrics sonogram. HISTORY: Pain and . TECHNIQUE: Sonographic imaging of the pelvis and abdomen was performed. COMPARISON: None. FINDINGS: The uterus is normal in size. There is a single intrauterine gestational sac with beryl e and yolk sac. The crown-rump length is 1.0 cm, corresponding with a gestational age of 7 weeks and 1 day. There is a normal heart rate of 153 beats minute. The gestational sac is normal in confi guration and location. No subchorionic hematoma is seen. The right ovary is obscured due to bowel gas . The left ovary is normal in size and demonstrates normal blood flow. There is a 2.0 cm complex left ovarian cyst, possibly hemorrhagic in etiology. The abdomen is normal in size. No focal hepatic lesion is seen. There is cholelithiasis. There is no sonographic evidence of cholecystitis. The right kidney, pancreas and inferior vena cava are unremark able. The aorta is not assessed. IMPRESSION: 1. Single intrauterine fetus with normal heart rate and gestational age of 7 weeks and 1 day. 2. 2.0 cm complex left ovarian cyst, possibly hemorrhagic in etiology. 3. Cholelithiasis. There is no convincing cholecystitis. Electronically signed by: Susana Valadez MD (10/31/2020 2:45 PM) [facility]
[2020-10-31] MEDS ORDERED: CEPH750C9 PO (16:35)
[2020-10-31 16:45] VITALS: BP 132/79
== END 2020-10-31 16:58 | disposition home or self-care (01) ==
LOC: ER 13:30
DX: O26.891 Other specified pregnancy related conditions, first trimester (principal); R10.11 Right upper quadrant pain; R20.2 Paresthesia of skin; F41.9 Anxiety disorder, unspecified; F32.9 Major depressive disorder, single episode, unspecified; K21.9 Gastro-esophageal reflux disease without esophagitis; Z98.890 Other specified postprocedural states; Z3A.01 Less than 8 weeks gestation of pregnancy
CPT/HCPCS: 36415; 76705; 76801; 76817; 80048; 80076; 81001; 81025; 83690; 84702; 85025; 96374; 96375; 99284; J2765; J3010

== ENCOUNTER 2020-12-13 03:17 | Emergency (ER) | payer OTHER ==
[~2020-12-13] VITALS: Ht 167.6 cm; Wt 118.0 kg
[~2020-12-13 03:17] MED LIST changes: +CEPH750C9 PO
--- NOTE | 2020-12-13 05:22 | ED.ADGEN ---
Past Medical History Past Medical History: Anxiety, Depression, Gallstones, GERD, Other Additional Past Medical Histor: HTN in Past Surgical History: Additional Past Surgical Histo: C-sec x3. Smoking Status: Never Smoker Alcohol Use: None Drug Use: None General Adult EDM: Chief Complaint: VAGINAL BLEEDING HPI: HPI: Patient is a 30 year old female G4, P3 at 13 weeks 4 days based on LMP. Patient states that approximately 1 hour prior to arrival she started having heavy bright red vaginal bleeding without clots or tissue. Says she has occasional abdominal pain that she has had throughout this in her previous preg nancies. Last intercourse 24 hours ago. Denies any vaginal discharge or urinary complaints. Patient states she otherwise has been well denies any complications with this or previous pregnancies. Has not seen her [facility] for this yet. Was seen in this emergency department about 1 month ago for a small amount of dark red bleeding and had ultrasound done but is unsure what the results were. Denies any history of coagulopathy in her or her family Per chart review patient has A positive blood type Review of Systems: Review of Systems: All other systems within normal limits except for as noted in the HPI Allergies: Allergies: Allergies Coded Allergies Type Severity Reaction Last Updated Verified No Known Drug Allergies 09/14/15 No Physical Exam: PE: Constitutional: Well developed, well nourished, no acute distress, non-toxic appearance. [] HENT: Normocephalic, atraumatic, bilateral external ears normal, nose normal. [] Eyes: PERRLA, conjunctiva normal, no discharge. [] Neck: No rigidity, supple, no stridor. [] Cardiovascular: Regular rate and rhythm, brisk cap refill [] Lungs & Thorax: Non labored symmetric respirations, no tachypnea or respiratory distress [] Abdomen: Soft, nondistended. Skin: Warm, dry, no erythema, no rash. [] Back: Unremarkable Extremities: No deformities, range of motion grossly intact, no lower extremity edema [] Neurologic: Alert and oriented X 3, no focal deficits noted. [] Psychologic: Affect normal, judgement normal, mood normal. [] Current Patient Data: Labs: Laboratory Tests Test 12/13/20 06:29 Urine Collection Type Unknown Urine Color Yellow Urine Clarity Clear Urine pH 6.0 (<5.0-8.0) Urine Specific [place] >=1.030 (1.000-1.030) Urine Protein Negative mg/dL (NEG-TRACE) Urine Glucose (UA) Negative mg/dL (NEG) Urine Ketones (Stick) Negative mg/dL (NEG) Urine Blood Moderate (NEG) Urine Nitrite Negative (NEG) Urine Bilirubin Negative (NEG) Urine Urobilinogen Dipstick 1.0 mg/dL (0.2 mg/dL) Urine Leukocyte Esterase Negative (NEG) Urine RBC 0 /HPF (0-2) Urine WBC 0 /HPF (0-4) Urine Squamous Epithelial Cells Mod /LPF Urine Bacteria 0 /HPF (0-FEW) Urine Mucus Mod /LPF Microbiology 12/13/20 Wet Prep - Final, Complete Vital Signs: Vital Signs Date Time Temp Pulse Resp B/P (MAP) Pulse Ox O2 Delivery O2 Flow Rate FiO2 12/13/20 06:04 84 20 122/75 (91) 100 Room Air 12/13/20 04:10 98.1 98.1 EKG: EKG: [] Heart Score: C/O Chest Pain: No Risk Factors: Risk Factors: DM, Current or recent (<one month) smoker, HTN, HLP, family history of CAD, obesity. Risk Scores: Score 0 - 3: 2.5% MACE over next 6 weeks - Discharge Home Score 4 - 6: 20.3% MACE over next 6 weeks - Admit for Clinical Observation Score 7 - 10: 72.7% MACE over next 6 weeks - Early Invasive Strategies Radiology/Procedures: Radiology/Procedures: []IMAGING REPORT Signed PATIENT: SHARON CUEVAS ACCOUNT: [id number] : 1990 LOCATION: ER AGE: 30 SEX: F EXAM STATUS: REG ER ORD. PHYSICIAN: SUSANA GODFREY MD REASON: vag bleeding PROCEDURE: OB <14 WKS W/TV OB ultrasound less than 14 weeks and transvaginal OB ultrasound HISTORY: Vaginal bleeding Sonographic examination of the was performed by transabdominal and endovaginal technique. Multiple static images were obtained. Ultrasound less than 14 weeks transabdominal: There is a single live intrauterine . The heartbeat is confirmed at 144 beats per minute. Visualization of structures is limited at this early gestational age. The LMP of 09/11/2020 corresponds with a 13 week 2 day gestational age and estimated confinement June 18, 2021. Estimated size by ultrasound is 14 weeks 0 days gestational age and estimated date of confinement of 06/13/2021. There is a variable position. The measurements are as follows: BPD 2.1 cm 13 weeks 4 days Head circumference 9.0 cm 14 weeks 0 days Abdominal discomfort 7.6 cm 14 weeks 0 days Femur length 1.4 cm 14 weeks 2 days There is a small fluid collection adjacent to the placenta. Transvaginal ultrasound : The maternal cervix appears normal measures 4.5 cm in length. There is a small fluid collection adjacent to the placenta. There is placenta previa. IMPRESSION: 1. Single live intrauterine at 13 weeks 2 days gestational age by LMP has size by ultrasound within one standard deviation. 2. Small fluid collection adjacent the stomach could be a subchorionic bleed. 3. Placenta previa. A short-term follow-up ultrasound could be performed if clinically indicated otherwise a structural survey would be performed at 18-21 weeks gestational age. Recommend OB consultation. Electronically signed by: Mirlande Wasserman III, MD (12/13/2020 6:34 AM) [facility] DICTATED and SIGNED BY: MIRLANDE WASSERMAN III, MD DATE: 12/13/20 [id number] 0 Course & Med Decision Making: Course & Med Decision Making Pending labs and ultrasound at shift change. Concern for vaginal bleeding and for extremities , threatened miscarriage with subchorionic hemorrhage and placenta previa. Patient reports vaginal bleeding started yesterday morning and was dark red, filled 1 pad. Reports she is now spotting-bleeding has almost resolved. Patient hemodynamically stable, no further tachycardia. H&H reviewed from 1 month ago- stable with no history of anemia or blood transfusions. Rh factor positive. I discussed with Dr. Lizarraga, [facility]-he recommended pelvic rest (no douching, sexual intercourse/masturbation, tampons or vaginal insertion of any kind). Patient educated on this-is well aware of these recommendations regarding prior with placenta previa. Patient follows with Dr. Divya Austin at . CT report printed and given to patient to take to her OB. Will discharge home with strict ED return precautions were given for vaginal bleeding, abdominal or back pain, syncope, exertional dyspnea, or strokelike symptoms. Encouraged urgent outpatient follow-up with PMD and [facility]. Life-threatening processes were considered but are low suspicion at this time, given history, physical exam and ED workup. Pt was educated on all prescription medications and adverse effects. All patient's questions were answered and pt was stable at time of discharge. Life/limb-threatening differential includes but is not limited to, ectopic , septic , sepsis/infection (endometritis, sti/pid, cystitis, pyelonephritis, Tegan's gangrene or necrotizing fasciitis, abscess), ovarian torsion, ruptured hemorrhagic ovarian cyst, endometriosis, ureterolithiasis, thrombophlebitis, hemorrhage/DIC, organ prolapse, abdominal aortic aneurysm, mes enteric ischemia, neoplasm, bowel obstruction or surgical abdomen. I spoken with the patient and her caregivers. I explained the patient's condition, diagnoses and treatment plan based on the information available to me at this time. I have answered the patient and her caregiver's questions and addressed any concerns. The patient and her caregivers have a good understanding of patient's diagnosis, condition and treatment plan as can be expected at this point. Vital signs have been stable. Patient's condition is stable and appropriate for discharge from the emergency department. Patient will pursue further outpatient evaluation with primary care physician or other designated or consulting physician as outlined in the discharge instructions. The patient and/or caregivers are agreeable to this plan of care and follow-up instructions have been explained in detail. The patient and/or caregivers have received these instructions in written form and have expressed an understanding of the discharge instructions. The patient and/or caregivers are aware that any significant change of condition or worsening of symptoms should prompt immediate return to this or the closest emergency department or call to 911. Osei Disclaimer: Osei Disclaimer: This electronic medical record was generated, in whole or in part, using a voice recognition dictation system. Departure Departure Impression: Primary Impression: Vaginal bleeding in Additional Impressions: Threatened Subchorionic hemorrhage in first trimester Placenta previa Disposition: 01 HOME / SELF CARE / HOMELESS Condition: STABLE Referrals: NO PCP (PCP) Follow-up with your primary care physician in the next week or FOLLOW UP WITH FAMILY MEDICINE: [address] [place] [address] Patient Instructions: - Placenta Previa, Subchorionic Hematoma, Threatened Miscarriage Additional Instructions: Follow-up with your [facility] in the next 24 to 48 hours or FOLLOW UP WITH [facility]: [facility] [address] [place] [address] EMERGENCY DEPARTMENT GENERAL DISCHARGE INSTRUCTIONS Thank you for coming to [facility] Emergency Department (ED) today and trusting us with you care. We trust that you had a positive experience in our Emergency Department. If you wish to speak to the department management, you may call the Director at [phone]. YOUR FOLLOW UP INSTRUCTIONS ARE FOLLOWS: 1. Do you have a private Doctor? If you do not have a private doctor, please ask for a resource list of physicians or clinics that may be able to assist you with follow up care. 2. The Emergency Physicain has interpreted your x-rays. The X-Ray specialist will also review them. If there is a change in the findings, you will be notified in 48 hours when at all possible. 3. A lab test or culture has been done, your results will be reviewed and you will be notified if you need a change in treatment. ADDITIONAL INSTRUCTIONS AND INFORMATION: 1. Your care today has been supervised by a physician who is specially trained in emergency care. Many problems require more than one evaluation for a complete diagnosis and treatment. We recommend that you schedule your follow up appointment as bernardo mmended to ensure complete treatment of you illness or injury. If you are unable to obtain follow up care and continue to have a problem, or if your condition worsens, we recommend that you return to the ED. 2. We are not able to safely determine your condition over the phone nor are we able to give sound medical advice over the phone. For these safety reasons, if you call for medical advice we will ask you to come to the ED for further evaluation. 3. If you have any questions regarding these discharge instructions please call the ED at [phone]. SAFETY INFORMATION: In the interest of safety, wellness, and injury prevention; we encourage you to wear your sealbelt, if you smoke; quite smoking, and we encourage family to use a protective helmet for bicycling and other sporting events that present an increased risk for head injury. IF YOUR SYMPTOMS WORSEN OR NEW SYMPTOMS DEVELOP, OR YOU HAVE CONCERNS ABOUT YOUR CONDITION; OR IF YOUR CONDITION WORSENS WHILE YOU ARE WAITING FOR YOUR FOLLOW UP APPOINTMENT; EITHER CONTACT YOUR PRIMARY CARE DOCTOR, THE PHYSICIAN WHOSE NAME AND NUMBER YOU WERE GIVEN, OR RETURN TO THE ED IMMEDIATELY. Problem Qualifiers SUSANA GODFREY MD December 13, 2020 05:22 FRANCISCO JAVIER POOLE DO December 13, 2020 06:45
[2020-12-13 06:04] VITALS: BP 122/75
--- NOTE | 2020-12-13 06:37 | RAD ---
OB ultrasound less than 14 weeks and transvaginal OB ultrasound HISTORY: Vaginal bleeding Sonographic examination of the was performed by transabdominal and endovaginal technique. M ultiple static images were obtained. Ultrasound less than 14 weeks transabdominal: There is a single live intrauterine . The heartbeat is confirmed at 144 beats per minute. Vi sualization of structures is limited at this early gestational age. The LMP of 09/11/2020 corresponds with a 13 week 2 day gestational age and estimated confinement Decem 2020. Estimated size by ultrasound is 14 weeks 0 days gestational age and estimated date of confinement of 06/13/2021. There is a variable position. The measurements are as follows: BPD 2.1 cm 13 weeks 4 days Head circumference 9.0 cm 14 weeks 0 days Abdominal discomfort 7.6 cm 14 weeks 0 days Femur length 1.4 cm 14 weeks 2 days There is a small fluid collection adjacent to the placenta. Transvaginal ultrasound : The maternal cervix appears normal measures 4.5 cm in length. There is a small fluid collection adjac ent to the placenta. There is placenta previa. IMPRESSION: 1. Single live intrauterine at 13 weeks 2 days gestational age by LMP has size by ultrasoun d within one standard deviation. 2. Small fluid collection adjacent the stomach could be a subchorionic bleed. 3. Placenta previa. A short-term follow-up ultrasound could be performed if clinically indicated otherwise a structural f etal survey would be performed at 18-21 weeks gestational age. Recommend OB consultation. Electronically signed by: Ronn Canela III, MD (12/13/2020 6:34 AM) [facility]
[2020-12-13 06:48] LABS: BILIRUBIN,URINE NEGATIVE (NEG); CLARITY,URINE CLEAR; COLOR,URINE YELLOW; NITRITE,URINE NEGATIVE (NEG); PROTEIN,URINE NEGATIVE (NEG-TRACE)
[2020-12-13 07:10] LABS: BACTERIA,URINE 0 /HPF (0-FEW); RBC,URINE 0 /HPF (0-2); WBC,URINE 0 /HPF (0-4)
== END 2020-12-13 08:06 | disposition home or self-care (01) ==
LOC: ER 03:17
DX: O20.0 Threatened abortion (principal); O44.01 Complete placenta previa NOS or without hemorrhage, first trimester; O99.611 Diseases of the digestive system complicating pregnancy, first trimester; K21.9 Gastro-esophageal reflux disease without esophagitis; O16.1 Unspecified maternal hypertension, first trimester; Z3A.13 13 weeks gestation of pregnancy
CPT/HCPCS: 76801; 76817; 81001; 87491; 87591; 99284; Q0111

== ENCOUNTER → 2021-02-06 | Outpatient (CLI) | payer OTHER ==
--- NOTE | 2021-02-08 10:43 | RAD ---
OB ultrasound greater than 14 weeks 02/06/2021 Clinical History: survey. Technique: A real-time ultrasound examination of the gravid uterus was performed. Multiple images wer e obtained. Findings: Comparison study is dated 12/13/2020. There is a single living IUP. The fetus is in a breech position. cardiac and somatic activity i s seen. The heart rate is 140 beats per minutes. The maternal cervix is closed. It measures 5.3 2 cm in length. The placenta is anterior. No abnormality is seen. The amniotic fluid volume is within normal limits. Neither maternal ovary is visualized. The following measurements were obtained: BPD 5.05cm 21 weeks to days HC 18.97 cm 21weeks to days AC 16.57 cm 21weeks 4 days FL 3.72 cm 21 weeks 6 days The estimated gestational age by ultrasound is 21 weeks 4 days plus or minus a standard deviation of 10 days. The estimated date of delivery by ultrasound on today's study is 06/15/2021. Since previous examination has been appropriate interval growth. Evaluation of anatomy is somewhat limited due to the patient's large body habitus. No abn ormality is definitely seen. Specifically the stomach, bladder, kidneys, 3 vessel cord and cord insertion, four-chamber heart, cisterna magna, cerebellum, nose/mouth, spine and extremities are within normal limits. Impression: Single living IUP with an estimated gestational age by ultrasound of 21 weeks4 days +/- a standard deviation of 10 days. Since the previous examination there has been appropriate interval fe luciana growth. Electronically signed by: Terry Wright MD (02/08/2021 10:40 AM) [id number]
== END ==
LOC: US 16:08
PROVIDERS: ATTEND Obstetrics & Gynecology
DX: Z34.92 Encounter for supervision of normal pregnancy, unspecified, second trimester (principal); Z3A.21 21 weeks gestation of pregnancy
CPT/HCPCS: 76805

== ENCOUNTER 2021-06-24 17:53 | Emergency (ER) | payer OTHER ==
[~2021-06-24] VITALS: Ht 167.6 cm; Wt 138.5 kg
[2021-06-24 18:20] VITALS: BP 128/95
== END 2021-06-24 20:08 | disposition left against medical advice (07) ==
LOC: ER 17:53
DX: O72.1 Other immediate postpartum hemorrhage (principal); Z53.21 Procedure and treatment not carried out due to patient leaving prior to being seen by health care provider